=== PATIENT | male | born 1950 | race Caucasian/White ===

== ENCOUNTER → 2020-03-10 13:19 | Outpatient (BNVA) | payer MEDICARE, SELFPAY | PROVIDERS: Family Provider Family Medicine; PCP Family Medicine; Visit Provider Urology | DX: R97.20 Elevated prostate specific antigen [PSA] (principal); N52.9 Male erectile dysfunction, unspecified | CPT/HCPCS: 81001; 84153 ==

== ENCOUNTER → 2020-12-22 13:07 | Outpatient (BNVA) | payer MEDICARE, SELFPAY | PROVIDERS: Family Provider Family Medicine; PCP Family Medicine; Visit Provider Urology | DX: R97.20 Elevated prostate specific antigen [PSA] (principal) | CPT/HCPCS: 81003; 84153 ==

== ENCOUNTER 2021-12-22 12:00 | Outpatient (CLI) | payer MEDICARE, SELFPAY | END 2021-12-22 12:01 | disposition home or self-care (01) | LOC: LAB 12:03 | PROVIDERS: Family Provider Family Medicine; PCP Family Medicine; Visit Provider Urology | DX: R97.20 Elevated prostate specific antigen [PSA] (principal) | CPT/HCPCS: 36415; 81003; 84153 ==

== ENCOUNTER → 2022-03-24 09:07 | Outpatient (BNVA) | payer MEDICARE, SELFPAY | PROVIDERS: Family Provider Family Medicine; PCP Family Medicine; Visit Provider Family Medicine | DX: Z00.00 Encounter for general adult medical examination without abnormal findings (principal) | CPT/HCPCS: 80053; 80061 ==

== ENCOUNTER 2022-12-12 14:39 | Outpatient (CLI) | payer MEDICARE, SELFPAY ==
[2022-12-12 15:38] LABS: Prostate Specific AG Urology 5.72 ng/mL (0-4)
== END 2022-12-12 14:40 | disposition home or self-care (01) ==
LOC: LAB 14:43
PROVIDERS: PCP Family Medicine; Visit Provider Urology
DX: R97.20 Elevated prostate specific antigen [PSA] (principal)
CPT/HCPCS: 36415; 84153

== ENCOUNTER → 2022-12-21 09:15 | Outpatient (BNVA) | payer MEDICARE, SELFPAY | PROVIDERS: PCP Family Medicine; Visit Provider Urology | DX: R97.20 Elevated prostate specific antigen [PSA] (principal); N52.9 Male erectile dysfunction, unspecified; Z80.42 Family history of malignant neoplasm of prostate | CPT/HCPCS: 81003; 99213 ==

== ENCOUNTER → 2023-01-29 08:35 | Outpatient (BNVA) | payer MEDICARE, SELFPAY | PROVIDERS: PCP Family Medicine; Visit Provider Dermatology | DX: L57.0 Actinic keratosis (principal); Z85.828 Personal history of other malignant neoplasm of skin; L82.1 Other seborrheic keratosis; L57.8 Other skin changes due to chronic exposure to nonionizing radiation; Z85.820 Personal history of malignant melanoma of skin | CPT/HCPCS: 17000; 17003; 99213 ==

== ENCOUNTER → 2023-03-12 10:20 | Outpatient (BNVA) | payer MEDICARE, SELFPAY | PROVIDERS: PCP Family Medicine; Visit Provider Family Medicine | DX: Z00.00 Encounter for general adult medical examination without abnormal findings (principal); Z13.6 Encounter for screening for cardiovascular disorders | CPT/HCPCS: 80053; 80061 ==

== ENCOUNTER → 2023-10-29 13:21 | Outpatient (BNVA) | payer MEDICARE, SELFPAY | PROVIDERS: PCP Family Medicine; Visit Provider Nurse Practitioner Family | DX: Z86.006 Personal history of melanoma in-situ (principal); Z85.828 Personal history of other malignant neoplasm of skin; L72.0 Epidermal cyst; L57.0 Actinic keratosis; L57.8 Other skin changes due to chronic exposure to nonionizing radiation; D22.4 Melanocytic nevi of scalp and neck; L81.4 Other melanin hyperpigmentation; L91.8 Other hypertrophic disorders of the skin | CPT/HCPCS: 10060; 11200; 17000; 99213 ==

== ENCOUNTER → 2023-12-04 10:10 | Outpatient (BNVA) | payer SELFPAY | PROVIDERS: PCP Family Medicine; Visit Provider Dermatology | DX: Z01.89 Encounter for other specified special examinations (principal) ==

== ENCOUNTER → 2024-03-06 08:18 | Outpatient (BNVA) | payer MEDICARE, SELFPAY | PROVIDERS: PCP Family Medicine; Visit Provider Family Medicine | DX: Z13.6 Encounter for screening for cardiovascular disorders (principal); Z00.00 Encounter for general adult medical examination without abnormal findings | CPT/HCPCS: 80053; 80061 ==

== ENCOUNTER → 2024-05-29 08:21 | Outpatient (BNVA) | payer MEDICARE, SELFPAY | PROVIDERS: PCP Family Medicine; Visit Provider Nurse Practitioner Family | DX: L57.8 Other skin changes due to chronic exposure to nonionizing radiation (principal); D22.4 Melanocytic nevi of scalp and neck; L81.4 Other melanin hyperpigmentation; D48.5 Neoplasm of uncertain behavior of skin; L57.0 Actinic keratosis; Z86.006 Personal history of melanoma in-situ; Z85.828 Personal history of other malignant neoplasm of skin | CPT/HCPCS: 11102; 17004; 99213 ==

== ENCOUNTER → 2024-06-16 08:50 | Outpatient (BNVA) | payer MEDICARE, SELFPAY | PROVIDERS: PCP Family Medicine; Visit Provider Dermatology | DX: C44.319 Basal cell carcinoma of skin of other parts of face (principal); L57.0 Actinic keratosis; L73.8 Other specified follicular disorders; L57.8 Other skin changes due to chronic exposure to nonionizing radiation | CPT/HCPCS: 13132; 17000; 17311; 99213 ==

== ENCOUNTER → 2024-09-30 08:35 | Outpatient (BNVA) | payer MEDICARE, SELFPAY | PROVIDERS: PCP Family Medicine; Visit Provider Nurse Practitioner Family | DX: L57.8 Other skin changes due to chronic exposure to nonionizing radiation (principal); D22.4 Melanocytic nevi of scalp and neck; L81.4 Other melanin hyperpigmentation; Z86.006 Personal history of melanoma in-situ; Z08 Encounter for follow-up examination after completed treatment for malignant neoplasm; Z85.828 Personal history of other malignant neoplasm of skin | CPT/HCPCS: 17000; 99213 ==

== ENCOUNTER → 2025-01-16 09:25 | Outpatient (BNVA) | payer MEDICARE, SELFPAY | PROVIDERS: PCP Family Medicine; Visit Provider Internal Medicine Cardiovascular Disease | DX: R07.9 Chest pain, unspecified (principal); R94.31 Abnormal electrocardiogram [ECG] [EKG] | CPT/HCPCS: 93005 ==

== ENCOUNTER 2025-02-03 06:30 | Outpatient (CLI) | payer MEDICARE, SELFPAY ==
--- NOTE | 2025-02-03 | ECG_ITS ---
Artwardly Test Date: 2025-02-03 Pat Name: Ajay Vallejo Department: Room: Gender: Male Sound Engineer: : 1950 Requested By: Jaida Olvera Order Number: [id number] Herber MD: JAIDA OLVERA Interpretive Statements Lung unchanged pre/post procedure; Intraprocedure shortess of breath; Symptoms resoled by discharge EXERCISE DATA: The patient was exercised by Carlos protocol. Baseline heart rate was 65 beats per minute. Baseline blood pressure was 129/71 millimeters of mercury. Target heart rate was 145 beats per minute. Maximum heart rate achieved was 132, which was 91% of the target heart rate. Maximum blood pressure was 186/86 millimeters of mercury. Total exercise time was 3 minutes 4o sec. Maximum METs achieved was 4.6, maximum VO2 was 16 . The reason for ending the test was maximum effort achieved. The patient complained of shortness of breath during the stress test, which then resolved at the end of the test. ELECTROCARDIOGRAM: BASELINE: Showed sinus rhythm, normal axis, no significant ST-T changes at the baseline noted. [] EXERCISE: At the peak exercise level, Significant inferolateral ST-T changes suggestive of ischemia noted. [] RECOVERY: During the recovery period, heart rate dropped appropriately. Significant ST-T changes in the recovery suggestive of ischemia noted. [It persisted beyond 3 minutes 49 seconds] CONCLUSION: 1. Exercise capacity poor. 2. Heart rate response was tachycardic. 3. Blood pressure response was hypertensive. 4. Symptoms suggestive of ischemia. 5. Electrocardiogram portion of the stress test is suggestive of ischemia. Electronically Signed On 02-24-2025 22:04:04 CDT by JAIDA OLVERA [email or web address]
[2025-02-03 06:48] VITALS: BMI 21.5
--- NOTE | 2025-02-03 06:51 | NMCV_ITS ---
NM kenyatta perf SPECT r/s* [id number] Genevieve Ajay Age: 75 Gender: M : 1950 Exam Date: 02/03/2025 07:32 Ordering Phys: Luke Olvera MD ([email or web address]) Technologist: LEIGH Del [place] Exam Location: [facility] Indications: cp STRESS TEST Please see separate stress test report in [facility] for full findings IMAGE PROTOCOL Rest/Stress 1 Exercise Day Radiopharmaceutical Dose (mCi) Administration Site Administered by Rest: Tc-99m 10.6 IV LEIGH Del [place] Sestamibi Stress:Tc-99m 33 IV Ofelia Renee, DENTAL SERVICE CHIEF Sestamibi Rest: 03-Feb-2025 60 Discovery 630 Stress: 03-Feb-2025 15 Discovery 630 Radiopharmaceutical was injected at 88 % maximum heart rate. Images obtained in supine and prone position. SPECT RESULTS Technical Quality: Good Raw Data Analysis: Normal Image Corrections: No attenuation or motion correction applied Summed Stress Score: 6 Summed Rest Score: 1 Summed Difference Score: 5 PERFUSION FINDINGS Medium sized area of fixed perfusion defect noted in basal to distal inferior wall surrounded by small to medium sized area of moderate reversibility suggestive of old myocardial infarction surrounded by medium sized area of mary-infarct ischemia in the RCA territory. FUNCTIONAL RESULTS (calculated via Gated SPECT) Stress Image LV EF (%): 66 Stress EDV (mL):79 TID: 0.98 Stress ESV (mL):27 FUNCTIONAL FINDINGS: There appeared to be basal to distal inferior wall hypokinesis IMPRESSIONS Medium sized area of old myocardial infarction surrounded by medium size area of moderate ischemia noted in the basal to distal inferior wall suggestive of possible lesion in the RCA territory. Luke Olvera MD (Electronically Signed) Final Date: 05 Feb 2025 22:19 S
[2025-02-03 08:15] VITALS: BP 139/66; PULSE 67
== END 2025-02-03 06:31 | disposition home or self-care (01) ==
PROVIDERS: PCP Family Medicine; Visit Provider Internal Medicine Cardiovascular Disease
DX: R07.9 Chest pain, unspecified (principal); R06.02 Shortness of breath; R93.1 Abnormal findings on diagnostic imaging of heart and coronary circulation; R00.0 Tachycardia, unspecified
CPT/HCPCS: 36415; 78452; 93017; 93306; A9500

== ENCOUNTER → 2025-02-09 09:08 | Outpatient (BNVA) | payer MEDICARE, SELFPAY | PROVIDERS: PCP Family Medicine; Visit Provider Family Medicine | DX: R97.20 Elevated prostate specific antigen [PSA] (principal) | CPT/HCPCS: 84153 ==

== ENCOUNTER → 2025-03-26 14:52 | Outpatient (BNVA) | payer MEDICARE, SELFPAY | PROVIDERS: PCP Family Medicine; Visit Provider Internal Medicine Cardiovascular Disease | DX: R58 Hemorrhage, not elsewhere classified (principal); R94.39 Abnormal result of other cardiovascular function study; R07.9 Chest pain, unspecified; R06.02 Shortness of breath | CPT/HCPCS: 36415; 80048; 85025; 85610 ==

== ENCOUNTER 2025-04-28 05:54 | Outpatient (CLI) | payer MEDICARE, SELFPAY ==
[2025-04-28] VITALS (25 sets, daily range): BP systolic 108–137; BP diastolic 60–78; PULSE 61–78; RESP 12–22; TEMP 36.7–36.9; O2SAT 96–98; BMI 21.9
--- NOTE | 2025-04-28 06:00 | XACV_ITS ---
Exam Room: 2 Ht: 178 cm Wt: 69 kg BSA: 1.85 m2 Gender: Male : 1950 Any Known Allergies: No known allergies Exam Priority: Routine Procedure(s): Procedure Description: Diagnostic procedure Procedure Description: PCI procedure Procedure Description: Left Heart Catheterization Procedure Description: Left ventriculography Procedure Description: Drug Eluting Coronary Stent Procedure Description: PTCA Procedure Description: Miscellaneous Procedure Description: ACT Procedure Description: Coronary Angiography May SAENZ; Diagnostic Cath Status: Elective Diagnostic Findings * Left Main has no disease. * Proximal Left Anterior Descending: mild 40% stenosis, MOISE: 3 flow. * Mid Left Anterior Descending: mild 40% stenosis, MOISE: 3 flow. * Mid Right Coronary Artery: subtotal occlusion, MOISE: 2 flow. * Distal Right Coronary Artery: mild 40% stenosis, MOISE: 3 flow. * Mid Circumflex: minimal 30% stenosis, MOISE: 3 flow. * Distal Circumflex to AV groove continuation of Circumflex Artery collaterallization. * Coronary angiography shows right dominance. PCI Status: Elective PCI Indication: New Onset Angina <= 2 months Interventional Findings * Mid Right Coronary Artery: 99% stenosis treated with a AB MINI TREK 2.00X15 RX BALLOON, TATIANA Vazquez AGUSTIN 4.0X22 SHORTY, and TATIANA REYES EUPHORA RX 4.54O58VD BALLOON. 0% residual stenosis, MOISE: 3 flow. Conclusions 1. There is subtotal occlusion coronary artery disease with three vessel disease. 2. All meza are normal. 3. Normal left ventricular systolic function. Ejection fraction of 65%. 4. Mid Right Coronary Artery was treated with a Balloon, Drug Eluting Stent, and Balloon. Recommendations * 1-Return to inpatient for close monitoring and routine cath care 2-Risk factor modification for secondary prevention 3-Statin and aspirin 81 mg life-long, if tolerated 4-Patient was pre-loaded with 600 mg of Plavix, continue Plavix 75mg p.o. daily for at least one year. We will assess at the end of one year again to continue if further or not 5-Continue optimal medical management 6-Follow up with Dr. Olvera in four weeks and your primary care in 10 days. Interventional RX Recommendation: PCI w/o planned CABG Diagnostic RX Recommendation: PCI w/o planned CABG LV EDP: 15 mmHg Ventriculography Ejection Fraction: 65.0 % Pressures Phase:Rest AO : 114 / 69 ( 88 ) @ 8:47:00 AM 128 / 74 ( 96 ) @ 8:57:00 AM 105 / 65 ( 83 ) @ 9:11:00 AM 133 / 68 ( 95 ) @ 9:24:00 AM 133 / 67 ( 94 ) @ 9:24:00 AM LV : 119 / -7 / 15 @ 9:24:00 AM 127 / 2 / 19 @ 9:24:00 AM 129 / 2 / 18 @ 9:24:00 AM Valves Phase:DefaultPhase AV : 0.0 @ 8:32:35 AM AV Mean Gradient: 0.0 @ 8:32:35 AM Clinical Evaluation EBL: 5mL-10mL Procedural Details Pre-Procedure Time Out. Identified patient by full name and date of as verbalized by the patient/guarantor. Does the consent match the physician's order: Yes. Accurate & Complete Informed Consent: Yes. Inpatient/Outpatient History & Physical on Chart: Yes. If H&P is completed, is and addenduem needed: No; If yes, is the addendum complete: N/A. Visualize and Verify Site with Patient/Guarantor: N/A. Relevant Radiology Images available: N/A. Pre-op teaching completed and patient verbalized understanding. The risks, benefits, and alternatives of sedation and/or procedure were discussed by physician. The patient agrees to continue. Procedure started. Admit Source: Out Patient. PERRLA. Strong, equal hand aerodynamic consultant bilaterally. Lungs clear x 5 lobes. IV Site on Arrival: 20 gauge in the right forearm. IV Fluids: 0.9% NaCl at 75ml/hr. 0 mL infused prior to construction or leak gang laborer. Pre Procedural Pulses: bilateral radial was 2+. Pre Procedural Pulses: right dorsalis pedis was 1+. Pre Procedural Pulses: left dorsalis pedis was Doppled. Pre Procedural Pulses: right posterior tibial was 2+. Pre Procedural Pulses: left posterior tibial was Doppled. Oxygen started at 2liters/min via nasal canula. right radial was prepped with chloroprep then draped in the usual sterile fashion. right groin was prepped with chloroprep then draped in the usual sterile fashion. Physician notified. Baseline sample Acquired. HR: 59 BPM. Physician arrived. [facility] Clinical Fraility Score: 4: Vulnerable. Local Combination Truck Driver Indications: Worsening Angina. Chest Pain Symptom Assessment: Typical Angina Symptoms. Correct patient, site and procedure confirmed by cath team. Current diagnosis: Chest Pain, Abnormal stress test. Physician scrubbed in. Immediate Pre-Procedure Time Out. Correct Patient: Yes; Correct Procedure: Yes; Correct Site: Yes; Correct Patient Position: Yes; Correct Supplies: Yes; Dried Flammable Prep: Yes; Blood Products Available: No;. Lidocaine 1% infiltrated to the right radial. Arterial access obtained. A 5 citizen of [place] TIG catheter in over wire. Multiple views taken of left coronary artery. Catheter redirected to the RCA. View taken of right coronary artery. Catheter removed over the exchange wire. 6 citizen [place] JR 4 guide catheter was inserted over the wire. AP pads applied. Add inventory: Co-commercial pilot, Endoflator. ACT drawn. Results 261 seconds. Therapeutic limits - pre-heparin administration 90-150 seconds and monitoring heparin during a vascular procedure >250 seconds. Runthrough guidewire was advanced through the guide catheter to lesion in the mid RCA. Guidewire advanced across lesion. Balloon inserted to lesion in the mid RCA. Inflation number : 1 A AB MINI TREK 2.00X15 RX BALLOON was prepped and advanced across the Mid RCA , then inflated to 16 CLEOPATRA for 0:27 seconds. Inflation number: 2 The AB MINI TREK 2.00X15 RX BALLOON was reinflated across the Mid RCA, to 18 CLEOPATRA for 0:12 seconds. Inflation number: 3 The AB MINI TREK 2.00X15 RX BALLOON was reinflated across the Mid RCA, to 18 CLEOPATRA for 0:15 seconds. Balloon out. Stent inserted to lesion in the mid RCA. Inflation Number : 4 A MDT R AGUSTIN 4.0X22 SHORTY -Lot Number# [id number] EXP 09-03-2027 was prepped and advanced across the Mid RCA. The stent was deployed at 12 CLEOPATRA for 0:35 seconds. Stent balloon out over wire. Balloon inserted to lesion in the mid RCA. Inflation number : 5 A MDT NC EUPHORA RX [id number] BALLOON was prepped and advanced across the Mid RCA , then inflated to 14 CLEOPATRA for 0:21 seconds. Inflation number: 6 The MDT NC EUPHORA RX [id number] BALLOON was reinflated across the Mid RCA, to 16 CLEOPATRA for 0:18 seconds. Balloon out. Results checked. ACT drawn. Results out of range high results. Therapeutic limits - pre-heparin administration 90-150 seconds and monitoring heparin during a vascular procedure >250 seconds. Guide catheter out. A 5 citizen [place] Angled Pig catheter in over wire. Wire out. EDP Sample taken: LV 119/-8,15; HR: 60 BPM; SpO2: 100%. LV gram performed in BANKS @ 10 mL/second for a total of 30 mL. EDP Sample taken: LV 127/2,19; HR: 54 BPM; SpO2: 100%. Pullback taken: LV 129/2,18; AO 133/68(95); Mean: 0mmHg, Peak to Peak: 0mmHg, SEP: 7sec/min; HR: 56 BPM; SpO2: 100%. Catheter removed over the exchange wire. A TR Band was successful obtaining hemostatsis at the Right Radial artery insertion site. Post Procedure: Pulses reassessed and unchanged. PERRLA. Strong, equal hand aerodynamic consultant bilaterally. No VTE prophylaxis required. Medication's Wasted: Lidocaine 1% = 18 mL. Medication's Wasted: Nitro = 49.8 mg. Medication's Wasted: Heparin = 3000 units. Medication's Wasted: Other = Fentanyl 50mcg, Versed 1 mg. Total IV fluids: 50 mL. Post-op diagnosis: Critical RCA Stenosis, Status post PCI placement of 1 SHORTY. Complications: None. Estimated blood loss: 5mL-10mL. Responsiveness - Normal response to verbal stimuli; alert and oriented, PERRLA. Airway - Unaffected, no intervention required; spontaneous ventilation. Circulation: W/N/L, pulses unchanged. Nausea/Vomiting: No. Physician scrubbed out. Procedure completed. Patient transferred by stretcher to CPRU. Vital chart was stopped. Access Site Site: Right Radial artery Sheath Size: 6 Fr Hemostasis Method: TR Band Hemostasis Success: Successful Procedure Medications Start: 7:43 AM Stop: 7:43 AM Medication: Versed Amount: 1 mg Route: I.V. Start: 7:43 AM Stop: 7:43 AM Medication: Fentanyl Amount: 50 mcg Route: I.V. Start: 7:45 AM Stop: 7:45 AM Medication: Nitrogylcerin Amount: 200 mcg Route: I.A. Start: 7:48 AM Stop: 7:48 AM Medication: Heparin Amount: 5000 units Route: I.V. Start: 7:57 AM Stop: 7:57 AM Medication: Plavix Amount: 600 mg Route: P.O. Start: 8:02 AM Stop: 8:02 AM Medication: Heparin Amount: 3000 units Route: I.V. I, the attending physician, have reviewed and verified all procedure medications. Yes, all medications given per verbal order History/Risk Factors Hypertension: No Dyslipidemia: No Peripheral Arterial Disease (PAD): No Myocardial Infarction (OR): No Obesity: No Renal Disease: No Tobacco Use: Never Prior Interventions PCI: No CABG: No Valve Surgery: No Report Signatures Finalized by Luke Olvera MD on 04/28/2025 08:42 AM
[2025-04-28 07:05] LABS: Hematocrit 44.5 % (37-53); Hemoglobin 14.90 g/dL (11.27-16.99); Mean Corpuscular HGB Conc 33.5 g/dL (30-55); Mean Corpuscular Hemoglobin 29.3 pg (27-33); Mean Corpuscular Volume 87.6 fl (82-101); Nucleated Red Blood Cells % 0 %; Platelet Count 302 10^3/cmm (157-399); Red Blood Count 5.08 10^6/uL (3.85-5.65); White Blood Count 6.11 10^3/uL (3.29-11.43)
[2025-04-28 07:12] LABS: Anion Gap 15.9 (5-19); Blood Urea Nitrogen 26 mg/dL (8-23); Calcium 9.8 mg/dL (8.5-10.5); Carbon Dioxide 26 mmol/L (22-29); Chloride 103 mmol/L (98-107); Creatinine Clr Calc Pharmacy 64.6028; Glucose 99 mg/dL (65-115); Osmolality Calculated 297 mOsm/kg (285-295); Potassium 3.9 mmol/L (3.5-5.1); Sodium 141 mmol/L (136-145)
--- NOTE | 2025-04-28 07:12 | W.PM.OPSUD ---
Surgery/Procedure H&P Update DATE OF PROCEDURE: April 28, 2025 DATE H&P PERFORMED: 03/26/25 H&P UPDATE INFORMATION: I have reviewed H&P completed within last 30 days, I have examined patient prior to procedure and No changes to prior documentation CHANGES TO PREVIOUS DOCUMENTATION: 75-year-old male past medical history significant for hypertension hyperlipidemia for worsening of shortness of breath chest pain suggestive of angina underwent nuclear stress test. It turns out to be abnormal and positive in the inferolateral region. Left heart catheterization was suggested with it is the reason patient is here. PRIMARY INDICATION FOR PROCEDURE: Abnormal stress test Angina PLANNED PROCEDURE: Operation Date: 04/28/25 07:00 Proposed Procedures p Cardiac Catheterization - C w/wo LV & Coros(Left) - Luke Olvera MD PATIENT REASSESSED PRIOR TO SEDATION, WITH NO CHANGE NOTED: Yes PHYSICAL EXAM: alert, oriented x 3, clear to auscultation bilaterally, regular rate & rhythm and operative site marked AIRWAY EVAL/ANESTHESIA PLAN: ASA II, Risks, benefits & alternatives of sedation and/or procedure discussed and Patient agrees to continue as planned ADDITIONAL INFORMATION: Patient has been explained all risk-benefit and alternative for the procedure. Patient understand 2% risk of stroke major bleed. Patient understand 5% risk of minor bleeding bruising infection hematoma urgent emergent vascular bypass surgery pseudoaneurysm contrast induced nephropathy. Patient would like to proceed with it after fully understanding it.
[2025-04-29 00:04] VITALS: BP 118/86; PULSE 73; RESP 16; TEMP 36.9; O2SAT 96
[2025-04-29 04:00] VITALS: BP 111/63; PULSE 68; RESP 14; TEMP 36.8; O2SAT 96
[2025-04-29 04:15] LABS: Hematocrit 37.7 % (37-53); Hemoglobin 12.50 g/dL (11.27-16.99); Mean Corpuscular HGB Conc 33.2 g/dL (30-55); Mean Corpuscular Hemoglobin 29.4 pg (27-33); Mean Corpuscular Volume 88.7 fl (82-101); Nucleated Red Blood Cells % 0 %; Platelet Count 253 10^3/cmm (157-399); Red Blood Count 4.25 10^6/uL (3.85-5.65); White Blood Count 7.34 10^3/uL (3.29-11.43)
[2025-04-29 04:36] LABS: Anion Gap 12.8 (5-19); Blood Urea Nitrogen 20 mg/dL (8-23); Calcium 8.6 mg/dL (8.5-10.5); Carbon Dioxide 24 mmol/L (22-29); Chloride 106 mmol/L (98-107); Creatinine Clr Calc Pharmacy 71.7809; Glucose 102 mg/dL (65-115); Osmolality Calculated 291 mOsm/kg (285-295); Potassium 3.8 mmol/L (3.5-5.1); Sodium 139 mmol/L (136-145)
[2025-04-29 05:40] VITALS: PULSE 67
[2025-04-29 07:45] VITALS: BP 130/76; PULSE 67; RESP 18; TEMP 36.6; O2SAT 96
--- NOTE | 2025-04-29 10:42 | PM.DCS ---
Discharge Providers Date of Admission: 04/28/2025 Date of Discharge: April 29, 2025 Attending Provider at Admission: Dr. Olvera Attending Provider at Discharge: Luke Olvera MD Primary Care Provider: Wai Hallman DO Reason for Visit Reason for Visit: R94.39 Brief History: The patient is a 75-year-old male presenting for planned angiogram for a positive stress test indicating possible inferior wall ischemia. He last saw the infusion pharmacist in December for worsening dyspnea on exertion, considered an angina equivalent with some chest pain. The stress test was conducted due to these symptoms and returned positive results, suggesting possible blockage. The patient reported dyspnea when walking long distances or exerting himself, but it does not bother him while sitting or at rest. He is currently taking aspirin as part of his medication regimen. Hospital Course Hospital Course Patient was taken to the [facility] [employer]. Left heart cath was done that showed subtotal occlusion of the mid RCA 99% stenosis. Patient was also found to have a proximal LAD mild 40% stenosis, mid LAD mild 40% stenosis, distal RCA mild 40% stenosis, mid circumflex minimal 30% stenosis. This was treated with a balloon and drug-eluting stent. Patient did well post cath without complications. Radial site clean dry intact no signs of hematoma. Patient was discharged on aspirin Plavix and high-dose statin regimen. He will follow-up in the clinic in 1 week. Physical Exam Narrative: General: No apparent distress HENMT: normoceophalic Muskuloskeletal: Full ROM Respiratory: Normal respiratory effort, clear to auscultation bilaterally throughout all lung patterson, no use of accessory muscles Cardio: No JVD, regular rate, regular rhythm, S1 S2 normal, no murmurs, peripheral pulses 2+ radial palpated bilaterally Extremities: Full ROM, normal, normal capillary refill, no cyanosis or edema Neuro: Alert and oriented x4, no focal motor deficits Psych: Affect normal, mental status grossly normal Skin: Right radial cath site clean, dry, intact w/o s/s of hematoma Discharge Data Studies Completed and Pending Completed Studies During Hospitalization Category Date Time Status DRIVER LICENSE REVIEWING OFFICER request for service Routine Exams 04/28/25 06:00 Completed Laboratory Results WBC 7.34 10^3/uL (3.29-11.43) 04/29/25 03:46 RBC 4.25 10^6/uL (3.85-5.65) 04/29/25 03:46 Hgb 12.50 g/dL (11.27-16.99) 04/29/25 03:46 Hct 37.7 % (37-53) 04/29/25 03:46 MCV 88.7 fl (82-101) 04/29/25 03:46 MCH 29.4 pg (27-33) 04/29/25 03:46 MCHC 33.2 g/dL (30-55) 04/29/25 03:46 RDW 12.9 % (12.1-15.1) 04/29/25 03:46 Plt Count 253 10^3/cmm (157-399) 04/29/25 03:46 MPV 9.4 fL (7.4-10.4) 04/29/25 03:46 Neut % (Auto) 71.0 % 04/29/25 03:46 Lymph % (Auto) 13.6 % 04/29/25 03:46 [place] % (Auto) 12.1 % 04/29/25 03:46 Eos % (Auto) 2.3 % 04/29/25 03:46 Baso % (Auto) 0.7 % 04/29/25 03:46 Neut # (Auto) 5.21 10^3/uL (1.8-7.7) 04/29/25 03:46 Lymph # (Auto) 1.0 10^3/uL (0.8-4.8) 04/29/25 03:46 [place] # (Auto) 0.9 10^3/uL (0.2-0.9) 04/29/25 03:46 Eos # (Auto) 0.2 10^3/uL (0.0-0.8) 04/29/25 03:46 Baso # (Auto) 0.1 10^3/uL (0.0-0.1) 04/29/25 03:46 Nucleated RBC % (auto) 0 % 04/29/25 03:46 Nucleated RBCs # 0.0 /100WBC 04/29/25 03:46 Sodium 139 mmol/L (136-145) 04/29/25 03:46 Potassium 3.8 mmol/L (3.5-5.1) 04/29/25 03:46 Chloride 106 mmol/L (98-107) 04/29/25 03:46 Carbon Dioxide 24 mmol/L (22-29) 04/29/25 03:46 Anion Gap 12.8 (5-19) 04/29/25 03:46 BUN 20 mg/dL (8-23) 04/29/25 03:46 Creatinine 0.9 mg/dL (0.7-1.2) 04/29/25 03:46 GFR Calculation Not Reportable 04/29/25 03:46 Glucose 102 mg/dL (65-115) 04/29/25 03:46 Calculated Osmolality 291 mOsm/kg (285-295) 04/29/25 03:46 Calcium 8.6 mg/dL (8.5-10.5) 04/29/25 03:46 Procedures Performed [facility] 04/28/25 1. There is subtotal occlusion coronary artery disease with three vessel disease. 2. All meza are normal. 3. Normal left ventricular systolic function. Ejection fraction of 65%. 4. Mid Right Coronary Artery was treated with a Balloon, Drug Eluting Stent, and Balloon. Vitals Last Vital Signs Temp 97.9 F 04/29/25 07:45 Pulse 67 04/29/25 07:45 Resp 18 04/29/25 07:45 BP 130/76 04/29/25 07:45 Pulse Ox 96 04/29/25 07:45 O2 Del Method Room Air 04/29/25 07:45 Discharge Plan Discharge Patient Disposition: Home Prescriptions: New atorvastatin [Lipitor] 80 mg tablet 80 mg PO BEDTIME Qty: 30 0RF clopidogrel 75 mg Tablet 75 mg PO DAILY Qty: 90 3RF Continued saw palmetto 160 mg capsule 160 mg PO BID Rx Instructions: give with meal/snack nitroglycerin 0.4 mg tablet, sublingual 0.4 mg sublingual Q5M PRN (Reason: chest pain) Qty: 20 1RF Rx Instructions: do not exceed 3 doses per episode lidocaine 5 % ointment 1 applic topical BID PRN (Reason: pain) Qty: 30 0RF aspirin [Adult Aspirin Regimen] 81 mg tablet,delayed release (DR/EC) 81 mg PO DAILY Qty: 90 3RF Discharge Order = DC NOW: Discharge Order (Routine); Ordered 04/29/25 Ordered By: Socorro Gallardo Referrals: Socorro Gallardo NP [Nurse Practitioner, Cardiology] - 05/04/25 8:30 am Wai Hallman DO [Primary Care Provider, [facility]] - 05/05/25 9:40 am Diet: Cardiac Activity: Limit activity as instructed Patient Instructions: Atorvastatin (By mouth) (Lipitor, Atorvaliq), Clopidogrel (By mouth) (Plavix), Coronary Angioplasty (DC), Chest Pain Stoplight, Post Angiogram Home Care Instructions Activity Restrictions/Additional Instructions: Discussed with patient no heavy lifting more than a gallon of milk 3 days. No driving for 3 days. Monitor for and report signs or symptoms of bleeding. Monitor for and report s/s of infection such as fever 101 or greater, swelling, redness or pain to the wrist. Risk factor modification for secondary prevention Statin and aspirin 81 mg life-long, if tolerated Continue Plavix 75mg p.o. daily for at least one year. We will assess at the end of one year again to continue if further or not Continue optimal medical management follow up with Dr. Olvera in four weeks and your primary care in 10 days. Print Language: Greenlandic Discharge Attestations Time Spent in Discharge Care*: less than 30 min Quality Metrics Clinical Quality Measures [ No reported AMI, CVA or VTE this stay] Coding Level of Care Code Acute Code for Chg Fwd
== END 2025-04-29 10:47 | disposition home or self-care (01) ==
LOC: CCL 06:38 → CSU 12:36
PROVIDERS: PCP Family Medicine; Visit Provider Internal Medicine Cardiovascular Disease
DX: I25.119 Atherosclerotic heart disease of native coronary artery with unspecified angina pectoris (principal); I25.82 Chronic total occlusion of coronary artery; Z79.82 Long term (current) use of aspirin; K21.9 Gastro-esophageal reflux disease without esophagitis; Z85.828 Personal history of other malignant neoplasm of skin
CPT/HCPCS: 36415; 80048; 85025; 85347; 93454; 93458; 99152; 99153; C1725; C1769; C1874; C1887; C1894; C9600; J1644; J2250; J3010; J3490; J7030; J9999; Q0163; Q9967

== ENCOUNTER → 2025-05-04 08:24 | Outpatient (BNVA) | payer MEDICARE, SELFPAY | PROVIDERS: PCP Family Medicine; Visit Provider Nurse Practitioner Family | DX: I20.89 Other forms of angina pectoris (principal); R06.09 Other forms of dyspnea; Z79.02 Long term (current) use of antithrombotics/antiplatelets; Z79.82 Long term (current) use of aspirin; Z95.5 Presence of coronary angioplasty implant and graft; R06.00 Dyspnea, unspecified; R07.89 Other chest pain | CPT/HCPCS: 99213 ==

== ENCOUNTER → 2025-08-24 08:57 | Outpatient (BNVA) | payer MEDICARE, SELFPAY | PROVIDERS: PCP Family Medicine; Visit Provider Family Medicine | DX: R97.20 Elevated prostate specific antigen [PSA] (principal) | CPT/HCPCS: 84153 ==